=== PATIENT | female | born 1980 | race Caucasian/White ===

== ENCOUNTER 2020-03-11 18:14 | Emergency (ER) | payer OTHER ==
[~2020-03-11] VITALS: Ht 165.1 cm; Wt 95.3 kg
[~2020-03-11 18:14] MED LIST: ACETAMINOPHEN-1 EAC1 PO; AMOXICILLIN875 MG PO; ATIVAN1 MG PO; CARISOPRODOL 3350 MG PO; DOXYCYCLINE 10100 MG PO; FLEXERIL PO; FLONASE 0.05%50 MCG NS; LORTAB 5 MG/5001 TA1 PO; NOHOMEMEDICATIONS; NORCO 5-325 TA1 EACH PO; ONDANSETRON HCL4 M2 PO; PENICILLIN V P500 MG PO; PERCOCET 5-3251 EACH PO; PHENERGAN 25 MG25 M1 PO; ULTRAM 50MG TAB50 MG PO; WELLBUTRIN 100100 MG PO; ZANTAC 150MG T150 M1 PO; ZOFRAN ODT4 MG PO; ZOFRAN4 MG PO; ZPAK PO
[2020-03-11 18:15] VITALS: BP 114/76
[2020-03-11] MEDS ORDERED: METHADOSE10 MG/1 ML PO (18:22)
[2020-03-11] MEDS ORDERED: WELLBUTRIN XL300 MG PO (18:22)
== END 2020-03-11 19:07 | disposition home or self-care (01) ==
LOC: ER 18:14
DX: S61.211A Laceration without foreign body of left index finger without damage to nail, initial encounter (principal); F32.9 Major depressive disorder, single episode, unspecified; Z79.899 Other long term (current) drug therapy; Z90.49 Acquired absence of other specified parts of digestive tract; W26.0XXA Contact with knife, initial encounter; Y93.G3 Activity, cooking and baking; Y92.098 Other place in other non-institutional residence as the place of occurrence of the external cause; Y99.8 Other external cause status

== ENCOUNTER 2020-06-13 12:55 | Emergency (ER) | payer OTHER ==
[~2020-06-13] VITALS: Ht 165.1 cm; Wt 94.3 kg
[~2020-06-13 12:55] MED LIST changes: +METHADOSE10 MG/1 ML PO; +WELLBUTRIN XL300 MG PO
[2020-06-13] MEDS ORDERED: PREDNISONE 20 M20 M1 PO (13:36)
[2020-06-13 14:40] VITALS: BP 114/69
== END 2020-06-13 14:40 | disposition home or self-care (01) ==
LOC: ER 12:55
DX: L25.9 Unspecified contact dermatitis, unspecified cause (principal); F32.9 Major depressive disorder, single episode, unspecified; Z90.49 Acquired absence of other specified parts of digestive tract; Z79.899 Other long term (current) drug therapy

== ENCOUNTER 2020-06-17 12:55 | Emergency (ER) | payer OTHER ==
[~2020-06-17] VITALS: Ht 165.1 cm; Wt 95.3 kg
[~2020-06-17 12:55] MED LIST changes: +PREDNISONE 20 M20 M1 PO
[2020-06-17] MEDS ORDERED: PREDNISONE 20 M20 MG PO (14:02)
[2020-06-17 14:37] VITALS: BP 130/87
== END 2020-06-17 14:38 | disposition home or self-care (01) ==
LOC: ER 12:55
DX: L25.9 Unspecified contact dermatitis, unspecified cause (principal); Z90.49 Acquired absence of other specified parts of digestive tract; Z79.899 Other long term (current) drug therapy

== ENCOUNTER 2021-01-17 12:10 | Emergency (ER) | payer OTHER ==
[~2021-01-17] VITALS: Ht 165.1 cm; Wt 95.3 kg
[~2021-01-17 12:10] MED LIST changes: +PREDNISONE 20 M20 MG PO
[2021-01-17 12:14] VITALS: BP 122/78
[2021-01-17] MEDS ORDERED: MEDROLDOSEPACK PO (12:26)
== END 2021-01-17 12:50 | disposition home or self-care (01) ==
LOC: ER 12:10
DX: R21 Rash and other nonspecific skin eruption (principal); T78.40XA Allergy, unspecified, initial encounter; Y92.89 Other specified places as the place of occurrence of the external cause; Z79.899 Other long term (current) drug therapy